=== PATIENT | male | born 1965 | race Hispanic/Latino ===

== ENCOUNTER 2018-12-02 12:31 | Emergency (ER) | payer BC, OTHER ==
[2018-12-02] MEDS ORDERED: KETOROLAC TROMETHAMINE 15MG/ML ONE (13:03)
[2018-12-02 14:14] LABS: BASOPHILS % (AUTO) 0.7 % (0.0-5.0); HEMATOCRIT 46.1 % (42-54); LYMPHOCYTES % (AUTO) 27.1 % (21.0-51.0); MEAN CORPUSCULAR HEMOGLOBIN 27.6 pg (27.0-33.0); MEAN CORPUSCULAR HGB CONC 33.1 g/dL (32.0-36.0); MEAN CORPUSCULAR VOLUME 83.4 fL (79-99); MONOCYTES % (AUTO) 7.3 % (3.0-13.0); NEUTROPHILS % (AUTO) 62.9 % (40.0-77.0); NUCLEATED RED BLOOD CELLS 0.2 % (0.0-0.19); PLATELET COUNT (AUTO) 229 K/uL (130-400); RED BLOOD CELL COUNT(AUTO) 5.54 MIL/uL (4.50-6.20); WHITE BLOOD COUNT (AUTO) 9.6 K/uL (4.8-10.8)
[2018-12-02 14:22] LABS: CREATININE 0.9 mg/dL (0.5-1.5); POTASSIUM 4.3 mmol/L (3.5-5.1)
[2018-12-02 14:26] LABS: ALBUMIN 3.6 g/dL (3.5-5.0); BILIRUBIN,TOTAL 0.8 mg/dL (0.2-1.0); TOTAL PROTEIN, SERUM 6.7 g/dL (6.0-8.3)
[2018-12-02 14:33] LABS: APPEARANCE,URINE Clear (CLEAR); BILIRUBIN,URINE Negative (NEGATIVE); COLOR,URINE Yellow (YELLOW); GLUCOSE, URINE (UA) 500 mg/dL (NEGATIVE); KETONES,URINE Negative (NEGATIVE); LEUKOCYTE ESTERASE ,URINE Trace (NEGATIVE); NITRATE,URINE Negative (NEGATIVE); OCCULT BLOOD,URINE Negative (NEGATIVE); PROTEIN,URINE Negative (NEGATIVE)
[2018-12-02 14:51] LABS: RBC,URINE 0-1 /HPF (0-1)
[2018-12-02 14:52] LABS: AMORPHOUS SEDIMENT,UR Few /LPF (None Seen); BACTERIA,URINE Few /HPF (None Seen); SQUAMOUS EPITHELIAL CELL,UR Rare /HPF (0-2)
== END 2018-12-02 16:59 | disposition home or self-care (01) ==
LOC: EDH 12:31
DX: R10.30 Lower abdominal pain, unspecified (principal); E11.9 Type 2 diabetes mellitus without complications; F32.9 Major depressive disorder, single episode, unspecified; F41.9 Anxiety disorder, unspecified; J45.909 Unspecified asthma, uncomplicated; Z87.442 Personal history of urinary calculi; Z87.891 Personal history of nicotine dependence
CPT/HCPCS: 36415; 74176; 76870; 80053; 81001; 85025; 96374; 99285; J1885

== ENCOUNTER 2020-09-17 12:45 | Emergency (ER) | payer OTHER ==
[2020-09-17 13:13] LABS: APPEARANCE,URINE Clear (CLEAR); BILIRUBIN,URINE Negative (NEGATIVE); COLOR,URINE Yellow (YELLOW); GLUCOSE, URINE (UA) >=1000 mg/dL (NEGATIVE); KETONES,URINE Trace mg/dL (NEGATIVE); LEUKOCYTE ESTERASE ,URINE Negative (NEGATIVE); NITRATE,URINE Negative (NEGATIVE); OCCULT BLOOD,URINE Negative (NEGATIVE); PROTEIN,URINE Negative (NEGATIVE)
[2020-09-17 13:14] LABS: BASOPHILS % (AUTO) 0.4 % (0.0-5.0); EOSINOPHILS % (AUTO) 0.8 % (0.0-8.0); LYMPHOCYTES % (AUTO) 20.5 % (21.0-51.0); MEAN CORPUSCULAR HEMOGLOBIN 27.6 pg (27.0-33.0); MEAN CORPUSCULAR HGB CONC 32.8 g/dL (32.0-36.0); MEAN CORPUSCULAR VOLUME 84.1 fL (79-99); MONOCYTES % (AUTO) 8.1 % (3.0-13.0); NEUTROPHILS % (AUTO) 69.8 % (40.0-77.0); PLATELET COUNT (AUTO) 261 K/uL (130-400); RED BLOOD CELL COUNT(AUTO) 5.47 MIL/uL (4.50-6.20); RED CELL DISTRIBUTION WIDTH 13.2 % (11.0-15.5); WHITE BLOOD COUNT (AUTO) 8.5 K/uL (4.8-10.8)
[2020-09-17 13:23] LABS: POTASSIUM 3.8 mmol/L (3.5-5.1)
[2020-09-17 13:25] LABS: INR 0.94 (0.85-1.15); PROTHROMBIN TIME 10.3 SEC (9.6-11.6)
[2020-09-17 13:26] LABS: PARTIAL THROMBOPLASTIN TIME 26.7 SEC (26.3-35.5)
[2020-09-17 13:26] LABS: BACTERIA,URINE Rare /HPF (None Seen); RBC,URINE None Seen /HPF (0-1); WBC,URINE 0-1 /HPF (0-1)
[2020-09-17 13:27] LABS: MUCUS,URINE Few LPF (None Seen); SQUAMOUS EPITHELIAL CELL,UR 0-2 /HPF (0-2)
[2020-09-17 13:32] LABS: ALBUMIN 3.6 g/dL (3.5-5.0); BILIRUBIN,TOTAL 0.3 mg/dL (0.2-1.0); TOTAL PROTEIN, SERUM 7.1 g/dL (6.0-8.3)
[2020-09-17] MEDS ORDERED: MECLIZINE HCL 25 MG TABLET ONE (13:43)
[2020-09-17] MEDS ORDERED: ONDANSETRON HCL 4 MG/2 ML VIAL ONE (13:43)
[2020-09-17] MEDS ORDERED: ACETAMINOPHEN EXTRA STRENGTH 500 MG TABLET ONE (13:43)
[2020-09-17] MEDS ORDERED: CLINDAMYCIN 600 MG/D5% WATER 50 ML IV ONE (14:06)
== END 2020-09-17 14:50 | disposition home or self-care (01) ==
LOC: EDH 12:45
DX: J01.00 Acute maxillary sinusitis, unspecified (principal); R55 Syncope and collapse; E11.9 Type 2 diabetes mellitus without complications; J45.909 Unspecified asthma, uncomplicated; F32.9 Major depressive disorder, single episode, unspecified; F41.9 Anxiety disorder, unspecified; Z72.0 Tobacco use; Z79.899 Other long term (current) drug therapy; Z98.890 Other specified postprocedural states
CPT/HCPCS: 36415; 70450; 71045; 80053; 81001; 82550; 84484; 85025; 85610; 85730; 93005; 96365; 96375; 99285; J2405; J3490

== ENCOUNTER 2021-01-25 12:03 | Emergency (ER) | payer OTHER ==
[~2021-01-25] VITALS: Ht 167.6 cm; Wt 90.7 kg
[2021-01-25 12:05] VITALS: BP 128/75
[2021-01-25] MEDS ORDERED: ONDANSETRON 4MG INJ ONE (12:52)
[2021-01-25] MEDS ORDERED: TAMSULOSIN HCL 0.4 MG CAP.ER.24H ONE (12:52)
[2021-01-25] MEDS ORDERED: KETOROLAC 30MG VIAL (30MG/ML) ONE (12:53)
[2021-01-25 12:55] LABS: BASOPHILS % (AUTO) 0.5 % (0.0-5.0); EOSINOPHILS % (AUTO) 1.2 % (0.0-8.0); HEMATOCRIT 47.5 % (42-54); LYMPHOCYTES % (AUTO) 22.8 % (21.0-51.0); MEAN CORPUSCULAR HEMOGLOBIN 27.5 pg (27.0-33.0); MEAN CORPUSCULAR HGB CONC 32.8 g/dL (32.0-36.0); MEAN CORPUSCULAR VOLUME 83.6 fL (79-99); MONOCYTES % (AUTO) 7.1 % (3.0-13.0); NEUTROPHILS % (AUTO) 68.1 % (40.0-77.0); PLATELET COUNT (AUTO) 253 K/uL (130-400); RED BLOOD CELL COUNT(AUTO) 5.68 MIL/uL (4.50-6.20); RED CELL DISTRIBUTION WIDTH 13.8 % (11.0-15.5); WHITE BLOOD COUNT (AUTO) 11.3 K/uL (4.8-10.8)
[2021-01-25 12:58] LABS: APPEARANCE,URINE Cloudy (CLEAR); BILIRUBIN,URINE Negative (NEGATIVE); COLOR,URINE Yellow (YELLOW); GLUCOSE, URINE (UA) Negative (NEGATIVE); KETONES,URINE Negative (NEGATIVE); LEUKOCYTE ESTERASE ,URINE Trace (NEGATIVE); NITRATE,URINE Negative (NEGATIVE); OCCULT BLOOD,URINE Negative (NEGATIVE); PROTEIN,URINE Negative (NEGATIVE)
[2021-01-25 13:09] LABS: CARBON DIOXIDE 31 mmol/L (21-32); CHLORIDE 105 mmol/L (101-111); GLOMERULAR FILTR. RATE CALC 83 mL/min (>60); GLUCOSE,RANDOM 156 mg/dL (70-105); POTASSIUM 4.6 mmol/L (3.5-5.1); SODIUM SERUM 142 mmol/L (136-145); UREA NITROGEN, BLOOD 23 mg/dL (7-18)
[2021-01-25 13:18] LABS: ALANINE AMINOTRANSFERASE 16 U/L (12-78); ASPARTATE AMINOTRANSFERASE 11 U/L (10-37); BILIRUBIN,TOTAL 0.3 mg/dL (0.2-1.0); CRP QUANTITATIVE < 2.00 mg/L (0.00-9.0); TOTAL PROTEIN, SERUM 7.5 g/dL (6.0-8.3)
[2021-01-25 13:18] LABS: AMORPHOUS SEDIMENT,UR Moderate /LPF (None Seen); BACTERIA,URINE None Seen /HPF (None Seen); RBC,URINE 0-1 /HPF (0-1); SQUAMOUS EPITHELIAL CELL,UR 0-2 /HPF (0-2); WBC,URINE 0-1 /HPF (0-1)
[2021-01-25] MEDS ORDERED: KETOROLAC 30MG VIAL (30MG/ML) IV ONE (13:30)
[2021-01-25] MEDS ORDERED: ONDANSETRON 4MG INJ IVP ONE (13:30)
[2021-01-25] MEDS ORDERED: TAMSULOSIN HCL 0.4 MG CAP.ER.24H PO SCH (13:30)
[2021-01-25] MEDS ORDERED: ACET-2247 PO (14:10)
[2021-01-25] MEDS ORDERED: DICY20TA2 PO (14:10)
[2021-01-25 14:25] VITALS: BP 125/71
== END 2021-01-25 14:28 | disposition home or self-care (01) ==
LOC: EDH 12:03
DX: N20.0 Calculus of kidney (principal); K57.30 Diverticulosis of large intestine without perforation or abscess without bleeding; E11.9 Type 2 diabetes mellitus without complications; Z90.49 Acquired absence of other specified parts of digestive tract
CPT/HCPCS: 36415; 71045; 74176; 80053; 81001; 84484; 85025; 86140; 96374; 96375; 99285; J1885; J2405

== ENCOUNTER 2023-03-25 19:11 | Observation (INO) | payer OTHER ==
[~2023-03-25] VITALS: Ht 170.2 cm; Wt 83.7 kg
[~2023-03-25 19:11] MED LIST: ACET-2247 PO; DICY20TA2 PO
[2023-03-25 19:39] LABS: BASOPHILS # (AUTO) 0.08 K/uL (0.00-0.20); BASOPHILS % (AUTO) 0.6 % (0.0-5.0); EOSINOPHILS # (AUTO) 0.16 K/uL (0.00-0.70); EOSINOPHILS % (AUTO) 1.2 % (0.0-8.0); HEMATOCRIT 46.7 % (42-54); IMMATURE GRANULOCYTE ABSOLUTE 0.05 K/uL (0-1); LYMPHOCYTES # (AUTO) 3.7 K/uL (1.0-4.8); LYMPHOCYTES % (AUTO) 27.1 % (21.0-51.0); MEAN CORPUSCULAR HEMOGLOBIN 27.2 pg (27.0-33.0); MEAN CORPUSCULAR HGB CONC 33.6 g/dL (32.0-36.0); MEAN CORPUSCULAR VOLUME 80.8 fL (79-99); MONOCYTES # (AUTO) 0.8 K/uL (0.1-1.0); MONOCYTES % (AUTO) 5.7 % (3.0-13.0); NEUTROPHILS # (AUTO) 8.9 K/uL (1.8-7.7); PLATELET COUNT (AUTO) 255 K/uL (130-400); RED BLOOD CELL COUNT(AUTO) 5.78 MIL/uL (4.50-6.20); RED CELL DISTRIBUTION WIDTH 13.2 % (11.0-15.5); WHITE BLOOD COUNT (AUTO) 13.6 K/uL (4.8-10.8)
[2023-03-25 19:47] LABS: ALBUMIN 3.7 g/dL (3.5-5.0); BILIRUBIN,TOTAL 0.5 mg/dL (0.2-1.0); CREATININE 0.9 mg/dL (0.5-1.5); MAGNESIUM 1.7 mg/dL (1.80-2.40); POTASSIUM 4.3 mmol/L (3.5-5.1); TOTAL PROTEIN, SERUM 6.9 g/dL (6.0-8.3)
[2023-03-25 19:56] LABS: INR < 0.93 (0.85-1.15); PROTHROMBIN TIME 10.3 SEC (9.6-11.6)
[2023-03-25 20:11] LABS: AMPHET/METH SCREEN,URINE NEGATIVE (NEGATIVE); BARBITURATE SCREEN, URINE NEGATIVE (NEGATIVE); BENZODIAZEPINES SCREEN,URINE NEGATIVE (NEGATIVE); CANNABINOID SCREEN,URINE POSITIVE (NEGATIVE); COCAINE SCREEN,URINE NEGATIVE (NEGATIVE); OPIATE SCREEN,URINE NEGATIVE (NEGATIVE); PHENCYCLIDINE SCREEN,URINE NEGATIVE (NEGATIVE)
[2023-03-25 20:16] LABS: APPEARANCE,URINE CLEAR (CLEAR); BILIRUBIN,URINE NEGATIVE (NEGATIVE); COLOR,URINE LIGHT-YELLOW (YELLOW); GLUCOSE, URINE (UA) >=1000 mg/dL (NEGATIVE); KETONES,URINE NEGATIVE (NEGATIVE); LEUKOCYTE ESTERASE ,URINE NEGATIVE Leu/uL (NEGATIVE); NITRATE,URINE NEGATIVE (NEGATIVE); OCCULT BLOOD,URINE NEGATIVE (NEGATIVE); PROTEIN,URINE NEGATIVE (NEGATIVE); UROBILINOGEN,URINE 0.2 mg/dL (0.2-1.0)
[2023-03-25 20:19] LABS: ADD UA MICROSCOPIC YES
[2023-03-25 20:20] LABS: SQUAMOUS EPITHELIAL CELL,UR RARE /HPF (0-2); WBC,URINE 0-1 /HPF (0-1)
[2023-03-25] MEDS ORDERED: ASPIRIN 81MG CHEW TAB PO ONE (20:30)
[2023-03-25] MEDS ORDERED: NITROGLYCERIN 0.4 MG SL TAB SL PRN (20:30)
[2023-03-25] MEDS ORDERED: NITROGLYCERIN 0.4 MG SL TAB SL ONE (20:47)
[2023-03-25] MEDS ORDERED: ASPIRIN 81MG CHEW TAB ONE (20:47)
[2023-03-25] MEDS ORDERED: MORPHINE 2 MG SYG IV PRN (21:30)
[2023-03-25] MEDS ORDERED: LACTULOSE 20 GM/30 ML UDCUP PO PRN (21:30)
[2023-03-25] MEDS ORDERED: POTASSIUM CHLORIDE 10% ELIXIR 20 MEQ/15 ML UDCUP PO PRN (21:30)
[2023-03-25] MEDS ORDERED: ONDANSETRON 4MG INJ IV PRN (21:30)
[2023-03-25] MEDS ORDERED: KCL 20 MEQ ERTAB PO PRN (21:30)
[2023-03-25] MEDS ORDERED: MAGNESIUM 2GM PREMIX 50ML 50 ML IV PRN (21:30)
[2023-03-25] MEDS ORDERED: ACETAMINOPHEN 325 MG TAB PO PRN ×2 (21:30)
[2023-03-25] MEDS ORDERED: POTASSIUM CHLORIDE 10MEQ/100ML 100 ML IV PRN (21:30)
[2023-03-25 21:33] LABS: CHOLESTEROL 204 mg/dL (<200); HDL CHOLESTEROL 37 mg/dL (29-71); LDL DIRECT 140 mg/dL (0-99); TRIGLYCERIDES 253 mg/dL (30-200)
[2023-03-25 21:38] LABS: HEMOGLOBIN A1C 10.2 % (4.0-6.0)
[2023-03-26] MEDS: LACTATED RINGERS 1000ML 1,000 ML IV SCH ×2 (00:11→07:30)
[2023-03-26 01:05] VITALS: BP 148/64; PULSE 79; RESP 18
[2023-03-26] MEDS ORDERED: METF-444 PO (01:24)
[2023-03-26] MEDS ORDERED: SERT-440 PO (01:24)
[2023-03-26] MEDS ORDERED: TAMS-1 PO (01:24)
[2023-03-26] MEDS ORDERED: IBUP-2077 PO (01:25)
[2023-03-26 02:22] VITALS: O2SAT 93
[2023-03-26 04:08] VITALS: BP 113/89; PULSE 82; RESP 18
[2023-03-26] MEDS: INSULIN HUMULIN R 100 UNIT/ML 3ML SQ SCH ×2 (07:30→11:58)
[2023-03-26 08:00] VITALS: BP 145/85; PULSE 85; RESP 19; O2SAT 96
[2023-03-26 08:01] LABS: HEMATOCRIT 47.4 % (42-54); MEAN CORPUSCULAR HEMOGLOBIN 27.2 pg (27.0-33.0); MEAN CORPUSCULAR HGB CONC 33.1 g/dL (32.0-36.0); MEAN CORPUSCULAR VOLUME 82.1 fL (79-99); RED BLOOD CELL COUNT(AUTO) 5.77 MIL/uL (4.50-6.20); RED CELL DISTRIBUTION WIDTH 13.4 % (11.0-15.5)
[2023-03-26 08:41] LABS: CREATININE 0.8 mg/dL (0.5-1.5); POTASSIUM 4.2 mmol/L (3.5-5.1)
[2023-03-26] MEDS ORDERED: ENOXAPARIN SODIUM 40 MG/0.4 ML SYRINGE SQ SCH (09:00)
[2023-03-26] MEDS ORDERED: FAMOTIDINE 20MG TAB PO SCH (09:00)
[2023-03-26] MEDS ORDERED: FENOFIBRATE NANOCRYSTALLIZED 145 MG TAB PO SCH (09:00)
[2023-03-26] MEDS ORDERED: ASPIRIN 81 MG EC TAB PO SCH (09:00)
[2023-03-26] MEDS ORDERED: METOPROLOL TARTRATE 25 MG TAB PO SCH (09:00)
[2023-03-26] MEDS ORDERED: AEC81 PO (09:10)
[2023-03-26] MEDS ORDERED: ATOR40TA69 PO (09:10)
[2023-03-26] MEDS ORDERED: CEPH500C2 PO (09:10)
[2023-03-26] MEDS ORDERED: FENO145T26 PO (09:10)
[2023-03-26 12:00] VITALS: BP 132/74; PULSE 74; RESP 19
[2023-03-26] MEDS ORDERED: ATORVASTATIN 20 MG TABLET PO SCH (21:00)
== END 2023-03-26 12:45 | disposition still patient (30) ==
LOC: EDH 19:11 → INTOOBSV 21:03 → EDHIP 21:03 → 4AH 03-26 00:45
PROVIDERS: ADMIT Hospitalist; ATTEND Hospitalist
DX: R07.89 Other chest pain (principal); E78.5 Hyperlipidemia, unspecified; N39.0 Urinary tract infection, site not specified; I10 Essential (primary) hypertension; E11.9 Type 2 diabetes mellitus without complications; E87.1 Hypo-osmolality and hyponatremia; E83.42 Hypomagnesemia; F12.90 Cannabis use, unspecified, uncomplicated; F17.210 Nicotine dependence, cigarettes, uncomplicated; Z79.899 Other long term (current) drug therapy; Z87.442 Personal history of urinary calculi
CPT/HCPCS: 99285; 83036; 83735 ×2; 84484 ×3; 80061; 80053; 80305; 85025; 85610; 81001; 36415 ×2; 71045; 93005 ×5; 96372; 96365; 96366; 96375; 80048; 85027; 82948 ×2; G0378 ×3; J3475; J2270; J1650; J1815

== ENCOUNTER 2023-11-21 17:12 | Emergency (ER) | payer OTHER, MEDICARE ==
[~2023-11-21] VITALS: Ht 170.2 cm; Wt 86.2 kg
[~2023-11-21 17:12] MED LIST changes: -ACET-2247 PO; +AEC81 PO; +ATOR40TA69 PO; +CEPH500C2 PO; -DICY20TA2 PO; +FENO145T26 PO; +IBUP-2077 PO; +METF-444 PO; +SERT-440 PO; +TAMS-1 PO
[2023-11-21] MEDS: KETOROLAC 60 MG VIAL (30MG/ML) IM ONE (18:52)
[2023-11-21 18:58] LABS: APPEARANCE,URINE CLEAR (CLEAR); BILIRUBIN,URINE NEGATIVE (NEGATIVE); COLOR,URINE YELLOW (YELLOW); GLUCOSE, URINE (UA) 500 mg/dL (NEGATIVE); KETONES,URINE 10 mg/dL (NEGATIVE); LEUKOCYTE ESTERASE ,URINE NEGATIVE Leu/uL (NEGATIVE); NITRATE,URINE NEGATIVE (NEGATIVE); OCCULT BLOOD,URINE NEGATIVE (NEGATIVE); PH,URINE 5.5 (5.0-8.0); PROTEIN,URINE 20 mg/dL (NEGATIVE); UROBILINOGEN,URINE 0.2 mg/dL (0.2-1.0)
[2023-11-21 18:59] LABS: ADD UA MICROSCOPIC YES
[2023-11-21 19:00] LABS: MUCUS,URINE RARE LPF (None Seen); RBC,URINE 0-1 /HPF (0-1); SQUAMOUS EPITHELIAL CELL,UR RARE /HPF (0-2)
[2023-11-21 19:47] VITALS: BP 125/72; PULSE 81; RESP 18; O2SAT 97
== END 2023-11-21 19:50 | disposition home or self-care (01) ==
LOC: EDH 17:12
DX: N50.812 Left testicular pain (principal); E11.9 Type 2 diabetes mellitus without complications; Z87.442 Personal history of urinary calculi; Z98.890 Other specified postprocedural states; Z79.82 Long term (current) use of aspirin; Z79.899 Other long term (current) drug therapy; Z79.84 Long term (current) use of oral hypoglycemic drugs
CPT/HCPCS: 99285; 81001; 76870; 96372; J1885